=== PATIENT | female | born 1985 | race African-American/Black ===

== ENCOUNTER 2019-04-25 08:17 | Emergency (ER) | payer SELFPAY ==
[2019-04-25] MEDS ORDERED: Ondansetron 4 MG/2 ML SDV IVPUSH ONE ×2 (08:43→13:54)
[2019-04-25] MEDS ORDERED: Sodium Chloride 0.9% 10 ML Syringe FLUSH PRN ×2 (08:43→11:19)
[2019-04-25] MEDS ORDERED: Sodium Chloride 0.9% 1,000 ML IV STA (08:43)
[2019-04-25] MEDS ORDERED: HYDROmorphone 1 MG/ML Syringe IVPUSH ONE (08:45)
--- NOTE | 2019-04-25 08:51 | EDM.PDOC ---
ED HPI GENERAL MEDICAL PROBLEM - General Chief Complaint: Abdominal Pain Stated Complaint: ABDOMINAL PAIN, POSS CYST Time Seen by Provider: 04/25/19 08:26 Source of Information: Reports: Patient History Limitations: Reports: No Limitations - History of Present Illness INITIAL COMMENTS - FREE TEXT/NARRATIVE: The patient presents with abdominal pain, pelvic pain, nausea, vomiting and diarrhea. This has been going on for a few days. She has a history of cysts. She had surgery a few years ago to drain some of them. She has no dysuria or hematuria. She says the pain is radiating to her buttocks. She has no fever, chills, cough, chest pain, or shortness of breath. She has still has her gallbladder and appendix. Onset: Gradual Duration: Day(s): (3) Location: Reports: Abdomen, Back, Pelvis Quality: Reports: Sharp Severity: Moderate Improves with: Reports: None Worsens with: Reports: None Associated Symptoms: Reports: Nausea/Vomiting. Denies: Chest Pain, Cough, Fever /Chills, Headaches, Shortness of Breath Abdomen Pain Score (Numeric/FACES): 10 - Related Data Allergies Allergy/AdvReac Type Severity Reaction Status Date / Time No Known Allergies Allergy Verified 04/25/19 08:32 Home Meds: Home Meds . 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 - Past Surgical History Female Surgical History: Reports: Section Social & Family History - Tobacco Use Smoking Status *Q: Never Smoker - Caffeine Use Caffeine Use: Reports: None - Recreational Drug Use Recreational Drug Use: No ED ROS GENERAL - Review of Systems Review Of Systems: See Below Constitutional: Reports: No Symptoms HEENT: Reports: No Symptoms Respiratory: Reports: No Symptoms Cardiovascular: Reports: No Symptoms Endocrine: Reports: No Symptoms GI/Abdominal: Reports: Abdominal Pain, Diarrhea, Nausea, Vomiting : Reports: Other (Pelvic pain) Musculoskeletal: Reports: No Symptoms Skin: Reports: No Symptoms ED EXAM, GI/ABD - Physical Exam Exam: See Below Exam Limited By: No Limitations General Appearance: Alert, No Apparent Distress Ears: Normal External Exam Nose: Normal Inspection Head: Atraumatic, Normocephalic Neck: Normal Inspection Respiratory/Chest: No Respiratory Distress, Lungs Clear, Normal Breath Sounds Cardiovascular: Regular Rate, Rhythm, No Edema, No Murmur GI/Abdominal Exam: Soft, No Organomegaly, No Mass, Tender (Moderate generalized pain upon palpation) Course - Vital Signs Last Recorded V/S: Last Vital Signs Temp 100.8 F H 04/25/19 15:36 Pulse 144 H 04/25/19 15:21 Resp 16 04/25/19 15:36 BP 130/93 H 04/25/19 15:36 Pulse Ox 96 04/25/19 15:36 - Orders/Labs/Meds Orders: Active Orders 24 hr Category Date Time Status EKG Documentation Completion [RC] ASDIRECTED Care 04/25/19 15:00 Active Peripheral IV Care [RC] . DIRECTED Care 04/25/19 08:44 Active CULTURE BLOOD [BC] Stat Lab 04/25/19 11:40 Received CULTURE BLOOD [BC] Stat Lab 04/25/19 11:50 Received CULTURE URINE [RM] Stat Lab 04/25/19 10:00 Received GC/CHLAMYDIA BY PCR [MOLEC] Stat Lab 04/25/19 15:48 Received PATIENT RETYPE [BBK] Routine Lab 04/25/19 09:00 Results RED BLOOD CELLS LP [BBK] Stat Lab 04/25/19 09:00 Results Piperacillin/Tazobactam [Piperacil-Tazobact] 4.5 gm Med 04/25/19 16:30 Active Sodium Chloride 0.9% [Normal Saline] 100 ml IV Q8H Sodium Chloride 0.9% [Saline Flush] Med 04/25/19 08:43 Active 10 ml FLUSH ASDIRECTED PRN Sodium Chloride 0.9% [Saline Flush] Med 04/25/19 11:19 Active 10 ml FLUSH ONETIME PRN Blood Culture x2 Reflex Set [OM.PC] Stat Oth 04/25/19 11:15 Ordered ED Antiemetic Medication Reflex [OM.PC] Stat Oth 04/25/19 08:44 Ordered Peripheral IV Insertion Adult [OM.PC] Stat Oth 04/25/19 08:43 Ordered Transfuse PRBC [Transfuse Red Blood Cells] [COMM] Stat Oth 04/25/19 14:06 Ordered EKG 12 Lead [EK] Stat Ther 04/25/19 15:00 Ordered Medication Orders Piperacillin Sod/Tazobactam (Sod 4.5 gm/ Sodium Chloride) 100 mls @ 25 mls/hr IV Q8H MYRON Sodium Chloride (Saline Flush) 10 ml FLUSH ASDIRECTED PRN PRN Reason: Keep Vein Open Last Admin: 04/25/19 09:04 Dose: 10 ml Sodium Chloride (Saline Flush) 10 ml FLUSH ONETIME PRN PRN Reason: IV FLUSH Last Admin: 04/25/19 12:22 Dose: 10 ml Labs: Laboratory Tests 04/25/19 04/25/19 04/25/19 Range/Units 09:00 09:00 09:00 WBC 20.82 H (3.98-10.04) K/mm3 RBC 3.35 L (3.98-5.22) M/mm3 Hgb 7.3 L* (11.2-15.7) gm/L Hct 25.4 L (34.1-44.9) % MCV 75.8 L (79.4-94.8) fl MCH 21.8 L (25.6-32.2) pg MCHC 28.7 L (32.2-35.5) g/dl RDW Std Deviation 50.9 H (36.4-46.3) fL Plt Count 590 H (182-369) K/mm3 MPV 9.4 (9.4-12.3) fl Neut % (Auto) 88.1 H (34.0-71.1) % Lymph % (Auto) 5.8 L (19.3-51.7) % [place] % (Auto) 5.6 (4.7-12.5) % Eos % (Auto) 0.1 L (0.7-5.8) Baso % (Auto) 0.0 L (0.1-1.2) % Neut # (Auto) 18.33 H (1.56-6.13) K/mm3 Lymph # (Auto) 1.21 (1.18-3.74) K/mm3 [place] # (Auto) 1.16 H (0.24-0.36) K/mm3 Eos # (Auto) 0.02 L (0.04-0.36) K/mm3 Baso # (Auto) 0.01 (0.01-0.08) K/mm3 Manual Slide Review Abnormal smear Sodium 139 (136-145) mEq/L Potassium 3.1 L (3.5-5.1) mEq/L Chloride 104 (98-107) mEq/L Carbon Dioxide 25 (21-32) mEq/L Anion Gap 13.1 (5-15) BUN 5 L (7-18) mg/dL Creatinine 1.2 H (0.55-1.02) mg/dL Est Cr Clr Drug Dosing 57.58 mL/min Estimated GFR (MDRD) > 60 (>60) mL/min BUN/Creatinine Ratio 4.2 L (14-18) Glucose 153 H (74-106) mg/dL Lactic Acid (0.4-2.0) mmol/L Calcium 8.8 (8.5-10.1) mg/dL Total Bilirubin 1.0 (0.2-1.0) mg/dL AST 16 (15-37) U/L ALT 16 (14-59) U/L Alkaline Phosphatase 68 (46-116) U/L Total Protein 8.8 H (6.4-8.2) g/dl Albumin 2.7 L (3.4-5.0) g/dl Globulin 6.1 gm/dL Albumin/Globulin Ratio 0.4 L (1-2) Lipase 36 L (73-393) U/L HCG, Qual Negative (NEGATIVE) Urine Color (Yellow) Urine Appearance (Clear) Urine pH (5.0-8.0) Ur Specific [place] (1.005-1.030) Urine Protein (Negative) Urine Glucose (UA) (Negative) Urine Ketones (Negative) Urine Occult Blood (Negative) Urine Nitrite (Negative) Urine Bilirubin (Negative) Urine Urobilinogen (0.2-1.0) Ur Leukocyte Esterase (Negative) Urine RBC (0-5) /hpf Urine WBC (0-5) /hpf Ur Epithelial Cells (0-5) /hpf Urine Bacteria (FEW) /hpf Urine Mucus (FEW) /hpf Blood Type Gel Antibody Screen Crossmatch 04/25/19 04/25/19 04/25/19 Range/Units 09:00 09:00 10:00 WBC (3.98-10.04) K/mm3 RBC (3.98-5.22) M/mm3 Hgb (11.2-15.7) gm/L Hct (34.1-44.9) % MCV (79.4-94.8) fl MCH (25.6-32.2) pg MCHC (32.2-35.5) g/dl RDW Std Deviation (36.4-46.3) fL Plt Count (182-369) K/mm3 MPV (9.4-12.3) fl Neut % (Auto) (34.0-71.1) % Lymph % (Auto) (19.3-51.7) % [place] % (Auto) (4.7-12.5) % Eos % (Auto) (0.7-5.8) Baso % (Auto) (0.1-1.2) % Neut # (Auto) (1.56-6.13) K/mm3 Lymph # (Auto) (1.18-3.74) K/mm3 [place] # (Auto) (0.24-0.36) K/mm3 Eos # (Auto) (0.04-0.36) K/mm3 Baso # (Auto) (0.01-0.08) K/mm3 Manual Slide Review Sodium (136-145) mEq/L Potassium (3.5-5.1) mEq/L Chloride (98-107) mEq/L Carbon Dioxide (21-32) mEq/L Anion Gap (5-15) BUN (7-18) mg/dL Creatinine (0.55-1.02) mg/dL Est Cr Clr Drug Dosing mL/min Estimated GFR (MDRD) (>60) mL/min BUN/Creatinine Ratio (14-18) Glucose (74-106) mg/dL Lactic Acid (0.4-2.0) mmol/L Calcium (8.5-10.1) mg/dL Total Bilirubin (0.2-1.0) mg/dL AST (15-37) U/L ALT (14-59) U/L Alkaline Phosphatase (46-116) U/L Total Protein (6.4-8.2) g/dl Albumin (3.4-5.0) g/dl Globulin gm/dL Albumin/Globulin Ratio (1-2) Lipase (73-393) U/L HCG, Qual (NEGATIVE) Urine Color Dark yellow (Yellow) Urine Appearance Clear (Clear) Urine pH 6.0 (5.0-8.0) Ur Specific [place] 1.020 (1.005-1.030) Urine Protein 1+ H (Negative) Urine Glucose (UA) Negative (Negative) Urine Ketones Trace H (Negative) Urine Occult Blood 2+ H (Negative) Urine Nitrite Negative (Negative) Urine Bilirubin 1+ H (Negative) Urine Urobilinogen >=8.0 H (0.2-1.0) Ur Leukocyte Esterase 3+ H (Negative) Urine RBC 0-5 (0-5) /hpf Urine WBC 40-50 H (0-5) /hpf Ur Epithelial Cells 0-5 (0-5) /hpf Urine Bacteria Moderate H (FEW) /hpf Urine Mucus Many H (FEW) /hpf Blood Type O POSITIVE Gel Antibody Screen Negative Crossmatch See Detail 04/25/19 04/25/19 Range/Units 11:40 13:52 WBC (3.98-10.04) K/mm3 RBC (3.98-5.22) M/mm3 Hgb 6.8 L* (11.2-15.7) gm/L Hct 23.3 L (34.1-44.9) % MCV (79.4-94.8) fl MCH (25.6-32.2) pg MCHC (32.2-35.5) g/dl RDW Std Deviation (36.4-46.3) fL Plt Count (182-369) K/mm3 MPV (9.4-12.3) fl Neut % (Auto) (34.0-71.1) % Lymph % (Auto) (19.3-51.7) % [place] % (Auto) (4.7-12.5) % Eos % (Auto) (0.7-5.8) Baso % (Auto) (0.1-1.2) % Neut # (Auto) (1.56-6.13) K/mm3 Lymph # (Auto) (1.18-3.74) K/mm3 [place] # (Auto) (0.24-0.36) K/mm3 Eos # (Auto) (0.04-0.36) K/mm3 Baso # (Auto) (0.01-0.08) K/mm3 Manual Slide Review Sodium (136-145) mEq/L Potassium (3.5-5.1) mEq/L Chloride (98-107) mEq/L Carbon Dioxide (21-32) mEq/L Anion Gap (5-15) BUN (7-18) mg/dL Creatinine (0.55-1.02) mg/dL Est Cr Clr Drug Dosing mL/min Estimated GFR (MDRD) (>60) mL/min BUN/Creatinine Ratio (14-18) Glucose (74-106) mg/dL Lactic Acid 1.3 (0.4-2.0) mmol/L Calcium (8.5-10.1) mg/dL Total Bilirubin (0.2-1.0) mg/dL AST (15-37) U/L ALT (14-59) U/L Alkaline Phosphatase (46-116) U/L Total Protein (6.4-8.2) g/dl Albumin (3.4-5.0) g/dl Globulin gm/dL Albumin/Globulin Ratio (1-2) Lipase (73-393) U/L HCG, Qual (NEGATIVE) Urine Color (Yellow) Urine Appearance (Clear) Urine pH (5.0-8.0) Ur Specific [place] (1.005-1.030) Urine Protein (Negative) Urine Glucose (UA) (Negative) Urine Ketones (Negative) Urine Occult Blood (Negative) Urine Nitrite (Negative) Urine Bilirubin (Negative) Urine Urobilinogen (0.2-1.0) Ur Leukocyte Esterase (Negative) Urine RBC (0-5) /hpf Urine WBC (0-5) /hpf Ur Epithelial Cells (0-5) /hpf Urine Bacteria (FEW) /hpf Urine Mucus (FEW) /hpf Blood Type Gel Antibody Screen Crossmatch Meds: Medications Generic Name Dose Route Start Last Admin Trade Name Freq PRN Reason Stop Dose Admin Piperacillin Sod/Tazobactam 100 mls @ 25 mls/hr 04/25/19 16:30 Sod 4.5 gm/ Sodium Chloride IV Q8H MYRON Sodium Chloride 10 ml 04/25/19 08:43 04/25/19 09:04 Saline Flush FLUSH 10 ml ASDIRECTED PRN Administration Keep Vein Open Sodium Chloride 10 ml 04/25/19 11:19 04/25/19 12:22 Saline Flush FLUSH 10 ml ONETIME PRN Administration IV FLUSH Discontinued Medications Generic Name Dose Route Start Last Admin Trade Name Freq PRN Reason Stop Dose Admin Acetaminophen 975 mg 04/25/19 15:24 04/25/19 15:34 Tylenol PO 04/25/19 15:25 975 mg NOW ONE Administration Diatrizoate Meglum/Diatrizoate Sod 120 ml 04/25/19 11:19 04/25/19 12:22 Gastrografin 37% PO 04/25/19 11:20 90 ml ONETIME ONE Administration Hydromorphone HCl 1 mg 04/25/19 08:45 04/25/19 09:03 Dilaudid IVPUSH 04/25/19 08:46 1 mg ONETIME ONE Administration Hydromorphone HCl 0.5 mg 04/25/19 11:17 04/25/19 11:23 Dilaudid IVPUSH 04/25/19 11:18 0.5 mg ONETIME ONE Administration Hydromorphone HCl 0.5 mg 04/25/19 13:29 04/25/19 13:57 Dilaudid IVPUSH 04/25/19 13:30 0.5 mg ONETIME ONE Administration Sodium Chloride 1,000 mls @ 1,000 mls/hr 04/25/19 08:43 04/25/19 09:02 Normal Saline IV 04/25/19 09:42 1,000 mls/hr .BOLUS STA Administration Ceftriaxone Sodium 1 gm/ 100 mls @ 200 mls/hr 04/25/19 10:48 04/25/19 11:12 Sodium Chloride IV 04/25/19 11:17 200 mls/hr ONETIME ONE Administration Sodium Chloride 1,000 mls @ 999 mls/hr 04/25/19 12:40 04/25/19 12:48 Normal Saline IV 04/25/19 13:40 999 mls/hr ONETIME ONE Administration Sodium Chloride Confirm 04/25/19 15:09 04/25/19 15:28 Normal Saline Administered 04/25/19 15:10 Not Given Dose 1,000 mls @ as directed .ROUTE .STK-MED ONE Iopamidol 100 ml 04/25/19 11:19 04/25/19 12:22 Isovue-300 (61%) IVPUSH 04/25/19 11:20 100 ml ONETIME ONE Administration Ondansetron HCl 4 mg 04/25/19 08:43 04/25/19 09:02 Zofran IVPUSH 04/25/19 08:44 4 mg ONETIME ONE Administration Ondansetron HCl 4 mg 04/25/19 13:54 04/25/19 13:57 Zofran IVPUSH 04/25/19 13:55 4 mg ONETIME ONE Administration - Re-Assessments/Exams Free Text/Narrative Re-Assessment/Exam: 04/25/19 09:02 I ordered an IV NS 1L bolus, zofran 4mg IV, dilaudid 1mg IV, labs, UA and a transvaginal US. 04/25/19 11:16 Her WBC was elevated at 20.82. Her Hgb was low at 7.3. Her K was low at 3.1. He creatinine is elevated at 1.2. Her glucose is 153. Her UA does show a UTI. I have ordered a urine culture, blood cultures, lactic acid and rocephin IV. 04/25/19 14:08 Her US shows a 5.8cm solid appearing mass within the right ovary. This could possibly represent a hemorrhagic cyst making it look solid. Follow-up pelvic US is recommended in one month if patient's symptoms do not increase in severity to indicate earlier US. IUD is present within the endometrial cavity. Pelvic US is otherwise unremarkable. I called Dr Steiner and we talked about the findings and how a hemorrhagic cyst usually does not have an elevated WBC. I have ordered a CT of her abdomen and pelvis. The CT shows complex animality within the right side of the pelvis pushing the urterus to the left side. On CT exam this could represent ovarian mass, ovarian torsion with hemorrhage if patient has acute symptoms or even a large hemorrhagic cyst. This mass causes hydronephrosis of the right ureter and right kidney suggesting a fairly aggressive process. Slightly prominent retroperitoneal lymph nodes are noted. Uncertain if findings are due to previous inflammatory change or represent adenopathy from a more aggressive etiology of the right sided pelvic mass. Mild bibasilar atelectasis. I called Dr Steiner to update her and she will come see the patient. I rechecked her Hgb and it is down to 6.8. I have ordered 2 units of PRBCs. She had more pain so I did ordered a few doses of dilaudid and she had more nausea so I ordered more zofran. 04/25/19 16:01 Dr Steiner came to see the patient and felt she may also have pyelonephritis and possibly PID. She did get cervical cultures. She had some cervical motion tenderness. She felt the patient may be better served in [place]. 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 She talked to Dr Farley and the hospitalist Dr Bray and they accepted the patient. They wanted zosyn added. Departure - Departure Time of Disposition: 16:35 Disposition: DC/Tfer to [facility] 02 Condition: Serious Clinical Impression: Pyelonephritis, Pelvic mass, Tachycardia Anemia Qualifiers: Anemia type: other cause Other causes of anemia: other cause, not classified Qualified Code(s): D64.89 - Other specified anemias Fever Qualifiers: Fever type: unspecified Qualified Code(s): R50.9 - Fever, unspecified - Discharge Information Referrals: PCP,Not In Area [Primary Care Provider] - Forms: ED Department Discharge - My Orders Last 24 Hours: My Active Orders 04/25/19 08:43 Sodium Chloride 0.9% [Saline Flush] 10 ml FLUSH ASDIRECTED PRN Peripheral IV Insertion Adult [OM.PC] Stat 04/25/19 08:44 Peripheral IV Care [RC] . DIRECTED ED Antiemetic Medication Reflex [OM.PC] Stat 04/25/19 09:00 PATIENT RETYPE [BBK] Routine RED BLOOD CELLS LP [BBK] Stat 04/25/19 10:00 CULTURE URINE [RM] Stat 04/25/19 11:15 Blood Culture x2 Reflex Set [OM.PC] Stat 04/25/19 11:19 Sodium Chloride 0.9% [Saline Flush] 10 ml FLUSH ONETIME PRN 04/25/19 11:40 CULTURE BLOOD [BC] Stat 04/25/19 11:50 CULTURE BLOOD [BC] Stat 04/25/19 14:06 Transfuse PRBC [Transfuse Red Blood Cells] [COMM] Stat 04/25/19 15:00 EKG Documentation Completion [RC] ASDIRECTED EKG 12 Lead [EK] Stat 04/25/19 16:30 Piperacillin/Tazobactam [Piperacil-Tazobact] 4.5 gm Sodium Chloride 0.9% [ Normal Saline] 100 ml IV Q8H - Assessment/Plan Last 24 Hours: My Active Orders 04/25/19 08:43 Sodium Chloride 0.9% [Saline Flush] 10 ml FLUSH ASDIRECTED PRN Peripheral IV Insertion Adult [OM.PC] Stat 04/25/19 08:44 Peripheral IV Care [RC] . DIRECTED ED Antiemetic Medication Reflex [OM.PC] Stat 04/25/19 09:00 PATIENT RETYPE [BBK] Routine RED BLOOD CELLS LP [BBK] Stat 04/25/19 10:00 CULTURE URINE [RM] Stat 04/25/19 11:15 Blood Culture x2 Reflex Set [OM.PC] Stat 04/25/19 11:19 Sodium Chloride 0.9% [Saline Flush] 10 ml FLUSH ONETIME PRN 04/25/19 11:40 CULTURE BLOOD [BC] Stat 04/25/19 11:50 CULTURE BLOOD [BC] Stat 04/25/19 14:06 Transfuse PRBC [Transfuse Red Blood Cells] [COMM] Stat 04/25/19 15:00 EKG Documentation Completion [RC] ASDIRECTED EKG 12 Lead [EK] Stat 04/25/19 16:30 Piperacillin/Tazobactam [Piperacil-Tazobact] 4.5 gm Sodium Chloride 0.9% [ Normal Saline] 100 ml IV Q8H
[2019-04-25] MEDS ORDERED: cefTRIAXone 1 GM in Sodium Chloride 0.9% 100 ML IV ONE (10:48)
--- NOTE | 2019-04-25 11:05 | US ---
Pelvic ultrasound: Multiple real-time images were obtained transvaginally. Complicated appearing mass noted within the right ovary which is mostly solid and measures 5.6 x 5.8 x 5.7 cm. Left ovary shows follicles. Echogenic structure seen within the endometrial cavity compatible with IUD. Uterus is retroverted. No myometrial abnormality is seen. Endometrial thickness is 8 mm. Measurements: Right ovary (includes mass): 8.2 x 6.1 x 6.0 cm Left ovary: 4.5 x 2.3 x 2.9 cm Uterus: Length 8.7 cm, AP height 3.8 cm, transverse width 4.5 cm Impression: 1. 5.8 cm solid appearing mass within the right ovary. This could possibly represent a hemorrhagic cyst making it looks solid. Follow-up pelvic ultrasound is recommended in one month if patient's symptoms do not increase in severity to indicate earlier ultrasound. 2. IUD is present within the endometrial cavity. 3. Pelvic ultrasound is otherwise unremarkable. Diagnostic code #9
[2019-04-25] MEDS ORDERED: HYDROmorphone 0.5 MG/0.5 ML Syringe IVPUSH ONE ×3 (11:17→17:30)
[2019-04-25] MEDS ORDERED: Diatrizoate Meglumine/Diatrizoate Sodium 37% 120 ML Bottle PO ONE (11:19)
[2019-04-25] MEDS ORDERED: Iopamidol 612 MG/ML 100 ML Bottle IVPUSH ONE (11:19)
[2019-04-25] MEDS ORDERED: Sodium Chloride 0.9% 1,000 ML IV ONE (12:40)
--- NOTE | 2019-04-25 13:32 | CT ---
CT abdomen and pelvis Technique: Multiple axial sections were obtained from above the dome of the diaphragm inferiorly through the pubic symphysis. Intravenous and oral contrast was utilized. Delayed images were also obtained. Comparison: Prior pelvic ultrasound study performed earlier on the same day (9:29 AM). Findings: Collecting system within the right kidney is dilated with dilated right ureter. This finding presumably is due to obstruction from the right sided pelvic mass. Mixed density mass noted within the right side of the pelvis which pushes the uterus to the left side. This mass measures up to 8.6 cm on this exam. IUD is present within the endometrial cavity. IUD appears to have a somewhat low position on this exam. Atelectasis noted within both lung bases. Noncontrast appearance of the liver shows no discrete abnormality. Contrast seen within the distal esophagus compatible with reflux. Pancreas is normal. Gallbladder contains no calcified gallstones. Kidneys show no additional abnormality other than hydronephrosis noted above. Aorta shows no aneurysm. Several slightly prominent retroperitoneal lymph nodes are seen on the left side of the aorta with largest lymph node measuring 1.5 cm. No additional pelvic abnormality is appreciated. Contrast seen within the left ureter and within the bladder. Impression: 1. Complex abnormality within the right side of the pelvis pushing the uterus to the left side. On CT exam this could represent ovarian mass, ovarian torsion with hemorrhage if patient has acute symptoms or even a large hemorrhagic cyst. 2. This mass causes hydronephrosis of the right ureter and right kidney suggesting a fairly aggressive process. 3. Slightly prominent retroperitoneal lymph nodes are noted. Uncertain if findings are due to previous inflammatory change or represent adenopathy from a more aggressive etiology of the right sided pelvic mass. 4. Mild bibasilar atelectasis. Diagnostic code #3
[2019-04-25] MEDS ORDERED: Sodium Chloride 0.9% 1,000 ML ONE (15:09)
[2019-04-25] MEDS ORDERED: Acetaminophen 325 MG Tab PO ONE (15:24)
--- NOTE | 2019-04-25 15:53 | PCM.CONS ---
H&P History of Present Illness - General Date of Service: 04/25/19 Source of Information: Patient, Other (ER notes) History Limitations: Reports: No Limitations - History of Present Illness Initial Comments - Free Text/Narative: 33 year old here with pelvic pain, diarrhea, nausea and dark stool. CT shows solid appearing pelvic mass impinging on the ureter. History of ovarian cysts that have been "drained" laparoscopically. NO history of PID or STIs. Abdomen Pain Score (Numeric/FACES): 10 - Related Data Allergies/Adverse Reactions: Allergies Allergy/AdvReac Type Severity Reaction Status Date / Time No Known Allergies Allergy Verified 04/25/19 08:32 Home Medications: Home Meds . 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 - Past Surgical History Female Surgical History: Reports: Section Social & Family History - Tobacco Use Smoking Status *Q: Never Smoker - Caffeine Use Caffeine Use: Reports: None - Recreational Drug Use Recreational Drug Use: No H&P Review of Systems - Review of Systems: Review Of Systems: See Below General: Reports: Fever HEENT: Reports: No Symptoms Pulmonary: Reports: No Symptoms Cardiovascular: Reports: No Symptoms Gastrointestinal: Reports: Melena, Nausea, Vomiting Genitourinary: Reports: Dysuria Musculoskeletal: Reports: No Symptoms Skin: Reports: No Symptoms Psychiatric: Reports: No Symptoms Neurological: Reports: No Symptoms Hematologic/Lymphatic: Reports: No Symptoms Immunologic: Reports: No Symptoms Exam - Exam Exam: See Below - Vital Signs Vital Signs: Last Vital Signs Temp 38.2 C H 04/25/19 15:36 Pulse 144 H 04/25/19 15:21 Resp 16 04/25/19 15:36 BP 130/93 H 04/25/19 15:36 Pulse Ox 96 04/25/19 15:36 Weight: 92.986 kg - Exam General: Alert, Oriented, 4 HEENT: PERRLA, Hearing Intact, Mucosa Moist & [place], Nares Patent, Normal Nasal Septum, Posterior Pharynx Clear, Conjunctiva Clear, EOMI, EACs Clear, TMs Clear Neck: Supple, Trachea Midline, 2 Lungs: Clear to Auscultation, Normal Respiratory Effort Cardiovascular: Regular Rate, Regular Rhythm GI/Abdominal Exam: Normal Bowel Sounds, Soft, Non-Tender, No Organomegaly, No Distention, No Abnormal Bruit (Female) Exam: Cervical Discharge, Cervical Fluid, Cervix Motion Tenderness Rectal (Female) Exam: Normal Exam Back Exam: Normal Inspection, Full Range of Motion, NT Extremities: Normal Inspection, Normal Range of Motion, Non-Tender, No Pedal Edema, Normal Capillary Refill Skin: Warm, Dry, Intact Neurological: Cranial Nerves Intact, Reflexes Equal Bilateral Neuro Extensive - Mental Status: Alert, Oriented x3, Normal Mood/Affect, Normal Cognition Neuro Extensive - Motor, Sensory, Reflexes: CN II-XII Intact, Normal Gait, Normal Reflexes Psychiatric: Alert, Normal Affect, Normal Mood - Patient Data Lab Results Last 24 hrs: Laboratory Results - last 24 hr 04/25/19 04/25/19 04/25/19 Range/Units 09:00 09:00 09:00 WBC 20.82 H (3.98-10.04) K/mm3 RBC 3.35 L (3.98-5.22) M/mm3 Hgb 7.3 L* (11.2-15.7) gm/L Hct 25.4 L (34.1-44.9) % MCV 75.8 L (79.4-94.8) fl MCH 21.8 L (25.6-32.2) pg MCHC 28.7 L (32.2-35.5) g/dl RDW Std Deviation 50.9 H (36.4-46.3) fL Plt Count 590 H (182-369) K/mm3 MPV 9.4 (9.4-12.3) fl Neut % (Auto) 88.1 H (34.0-71.1) % Lymph % (Auto) 5.8 L (19.3-51.7) % [place] % (Auto) 5.6 (4.7-12.5) % Eos % (Auto) 0.1 L (0.7-5.8) Baso % (Auto) 0.0 L (0.1-1.2) % Neut # (Auto) 18.33 H (1.56-6.13) K/mm3 Lymph # (Auto) 1.21 (1.18-3.74) K/mm3 [place] # (Auto) 1.16 H (0.24-0.36) K/mm3 Eos # (Auto) 0.02 L (0.04-0.36) K/mm3 Baso # (Auto) 0.01 (0.01-0.08) K/mm3 Manual Slide Review Abnormal smear Sodium 139 (136-145) mEq/L Potassium 3.1 L (3.5-5.1) mEq/L Chloride 104 (98-107) mEq/L Carbon Dioxide 25 (21-32) mEq/L Anion Gap 13.1 (5-15) BUN 5 L (7-18) mg/dL Creatinine 1.2 H (0.55-1.02) mg/dL Est Cr Clr Drug Dosing 57.58 mL/min Estimated GFR (MDRD) > 60 (>60) mL/min BUN/Creatinine Ratio 4.2 L (14-18) Glucose 153 H (74-106) mg/dL Lactic Acid (0.4-2.0) mmol/L Calcium 8.8 (8.5-10.1) mg/dL Total Bilirubin 1.0 (0.2-1.0) mg/dL AST 16 (15-37) U/L ALT 16 (14-59) U/L Alkaline Phosphatase 68 (46-116) U/L Total Protein 8.8 H (6.4-8.2) g/dl Albumin 2.7 L (3.4-5.0) g/dl Globulin 6.1 gm/dL Albumin/Globulin Ratio 0.4 L (1-2) Lipase 36 L (73-393) U/L HCG, Qual Negative (NEGATIVE) Urine Color (Yellow) Urine Appearance (Clear) Urine pH (5.0-8.0) Ur Specific [place] (1.005-1.030) Urine Protein (Negative) Urine Glucose (UA) (Negative) Urine Ketones (Negative) Urine Occult Blood (Negative) Urine Nitrite (Negative) Urine Bilirubin (Negative) Urine Urobilinogen (0.2-1.0) Ur Leukocyte Esterase (Negative) Urine RBC (0-5) /hpf Urine WBC (0-5) /hpf Ur Epithelial Cells (0-5) /hpf Urine Bacteria (FEW) /hpf Urine Mucus (FEW) /hpf Blood Type Gel Antibody Screen Crossmatch 04/25/19 04/25/19 04/25/19 Range/Units 09:00 09:00 10:00 WBC (3.98-10.04) K/mm3 RBC (3.98-5.22) M/mm3 Hgb (11.2-15.7) gm/L Hct (34.1-44.9) % MCV (79.4-94.8) fl MCH (25.6-32.2) pg MCHC (32.2-35.5) g/dl RDW Std Deviation (36.4-46.3) fL Plt Count (182-369) K/mm3 MPV (9.4-12.3) fl Neut % (Auto) (34.0-71.1) % Lymph % (Auto) (19.3-51.7) % [place] % (Auto) (4.7-12.5) % Eos % (Auto) (0.7-5.8) Baso % (Auto) (0.1-1.2) % Neut # (Auto) (1.56-6.13) K/mm3 Lymph # (Auto) (1.18-3.74) K/mm3 [place] # (Auto) (0.24-0.36) K/mm3 Eos # (Auto) (0.04-0.36) K/mm3 Baso # (Auto) (0.01-0.08) K/mm3 Manual Slide Review Sodium (136-145) mEq/L Potassium (3.5-5.1) mEq/L Chloride (98-107) mEq/L Carbon Dioxide (21-32) mEq/L Anion Gap (5-15) BUN (7-18) mg/dL Creatinine (0.55-1.02) mg/dL Est Cr Clr Drug Dosing mL/min Estimated GFR (MDRD) (>60) mL/min BUN/Creatinine Ratio (14-18) Glucose (74-106) mg/dL Lactic Acid (0.4-2.0) mmol/L Calcium (8.5-10.1) mg/dL Total Bilirubin (0.2-1.0) mg/dL AST (15-37) U/L ALT (14-59) U/L Alkaline Phosphatase (46-116) U/L Total Protein (6.4-8.2) g/dl Albumin (3.4-5.0) g/dl Globulin gm/dL Albumin/Globulin Ratio (1-2) Lipase (73-393) U/L HCG, Qual (NEGATIVE) Urine Color Dark yellow (Yellow) Urine Appearance Clear (Clear) Urine pH 6.0 (5.0-8.0) Ur Specific [place] 1.020 (1.005-1.030) Urine Protein 1+ H (Negative) Urine Glucose (UA) Negative (Negative) Urine Ketones Trace H (Negative) Urine Occult Blood 2+ H (Negative) Urine Nitrite Negative (Negative) Urine Bilirubin 1+ H (Negative) Urine Urobilinogen >=8.0 H (0.2-1.0) Ur Leukocyte Esterase 3+ H (Negative) Urine RBC 0-5 (0-5) /hpf Urine WBC 40-50 H (0-5) /hpf Ur Epithelial Cells 0-5 (0-5) /hpf Urine Bacteria Moderate H (FEW) /hpf Urine Mucus Many H (FEW) /hpf Blood Type O POSITIVE Gel Antibody Screen Negative Crossmatch See Detail 04/25/19 04/25/19 Range/Units 11:40 13:52 WBC (3.98-10.04) K/mm3 RBC (3.98-5.22) M/mm3 Hgb 6.8 L* (11.2-15.7) gm/L Hct 23.3 L (34.1-44.9) % MCV (79.4-94.8) fl MCH (25.6-32.2) pg MCHC (32.2-35.5) g/dl RDW Std Deviation (36.4-46.3) fL Plt Count (182-369) K/mm3 MPV (9.4-12.3) fl Neut % (Auto) (34.0-71.1) % Lymph % (Auto) (19.3-51.7) % [place] % (Auto) (4.7-12.5) % Eos % (Auto) (0.7-5.8) Baso % (Auto) (0.1-1.2) % Neut # (Auto) (1.56-6.13) K/mm3 Lymph # (Auto) (1.18-3.74) K/mm3 [place] # (Auto) (0.24-0.36) K/mm3 Eos # (Auto) (0.04-0.36) K/mm3 Baso # (Auto) (0.01-0.08) K/mm3 Manual Slide Review Sodium (136-145) mEq/L Potassium (3.5-5.1) mEq/L Chloride (98-107) mEq/L Carbon Dioxide (21-32) mEq/L Anion Gap (5-15) BUN (7-18) mg/dL Creatinine (0.55-1.02) mg/dL Est Cr Clr Drug Dosing mL/min Estimated GFR (MDRD) (>60) mL/min BUN/Creatinine Ratio (14-18) Glucose (74-106) mg/dL Lactic Acid 1.3 (0.4-2.0) mmol/L Calcium (8.5-10.1) mg/dL Total Bilirubin (0.2-1.0) mg/dL AST (15-37) U/L ALT (14-59) U/L Alkaline Phosphatase (46-116) U/L Total Protein (6.4-8.2) g/dl Albumin (3.4-5.0) g/dl Globulin gm/dL Albumin/Globulin Ratio (1-2) Lipase (73-393) U/L HCG, Qual (NEGATIVE) Urine Color (Yellow) Urine Appearance (Clear) Urine pH (5.0-8.0) Ur Specific [place] (1.005-1.030) Urine Protein (Negative) Urine Glucose (UA) (Negative) Urine Ketones (Negative) Urine Occult Blood (Negative) Urine Nitrite (Negative) Urine Bilirubin (Negative) Urine Urobilinogen (0.2-1.0) Ur Leukocyte Esterase (Negative) Urine RBC (0-5) /hpf Urine WBC (0-5) /hpf Ur Epithelial Cells (0-5) /hpf Urine Bacteria (FEW) /hpf Urine Mucus (FEW) /hpf Blood Type Gel Antibody Screen Crossmatch Result Diagrams: 04/25/19 13:52 04/25/19 09:00 Consult PN Assessment/Plan Problem List Initiated/Reviewed/Updated: No My Orders Last 24 Hours: Pelvic mass with ureteral impingement and UTI/pyelonephritis. Severe anemia.
[2019-04-25] MEDS ORDERED: Piperacillin/Tazobactam 4.5 GM in Sodium Chloride 0.9% 100 ML IV SCH (16:30)
[2019-04-25 17:50] LABS: C. TRACHOMATIS BY PCR NOT DETECTED; N. GONORRHOEAE BY PCR NOT DETECTED
== END 2019-04-25 18:20 ==
LOC: JD.ED 08:17
DX: N12 Tubulo-interstitial nephritis, not specified as acute or chronic (principal); R19.00 Intra-abdominal and pelvic swelling, mass and lump, unspecified site; D64.89 Other specified anemias; R50.9 Fever, unspecified; R00.0 Tachycardia, unspecified
CPT/HCPCS: 36415; 36430; 74177; 76830; 80053; 81001; 83605; 83690; 84703; 85014; 85018; 85025; 86850; 86900; 86901; 86922; 87040; 87086; 87088; 87491; 87591; 93005; 96361; 96365; 96375; 96376; 99285; A9270; J0696; J1170; J2405; J2543; J7030; J7040; P9016; Q9963; Q9967

== ENCOUNTER 2019-05-20 17:22 | Emergency (ER) | payer SELFPAY ==
[2019-05-20] MEDS ORDERED: Erythromycin Base 0.5% Ophth Oint 1 GM Tube EYERT ONE (18:16)
[2019-05-20] MEDS ORDERED: Ciprofloxacin 0.3% Ophth Soln 5 ML Bottle EYEBOTH ONE (18:22)
--- NOTE | 2019-05-20 18:24 | EDM.PDOC ---
ED HPI GENERAL MEDICAL PROBLEM - General Chief Complaint: ENT Problem Stated Complaint: poss pink eye Time Seen by Provider: 05/20/19 18:00 Source of Information: Reports: Patient History Limitations: Reports: No Limitations - History of Present Illness INITIAL COMMENTS - FREE TEXT/NARRATIVE: Patient is a 33-year-old female who presents the ED complaining of pain, redness , excessive tearing to the right eye. This started over the weekend. No changes noted. Questionable matting of the eye in the morning. Similar symptoms as such in the past diagnosed with acute arterial conjunctivitis and was ministered eyedrops with resolution. She does wear contacts but has not been sleeping in them. She denies any vision changes although she does have some photosensitivity to light. Denies any headache, nausea vomiting, history of acute narrow angle go, recent history of form body to right eye, or any additional complaints. 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 ED EXAM GENERAL W FULL EYE - Physical Exam Exam: See Below Exam Limited By: No Limitations General Appearance: Alert, WD/WN, Mild Distress Eye Exam: Right Eye: Normal Inspection (Injected conjunctiva with clear drainage.), Bilateral Eye: EOMI, Nystagmus (none noted), PERRL, Vision Changes ( none noted) IOP (R) in mmH IOP (L) in mmH IOP Measure with (Equipment): [employer]open Eyelids: Bilateral: Normal Appearance Conjunctiva & Sclera: Right: Discharge (clear), Injected Extraocular Movements: Bilateral: Intact Pupillary Size: Bilateral: 3 mm Pupillary Reaction: Bilateral: Brisk Ears: Hearing Grossly Normal Nose: Normal Inspection Throat/Mouth: Normal Voice, No Airway Compromise Head: Atraumatic, Normocephalic Neck: Normal Inspection, Supple, Non-Tender, Full Range of Motion Respiratory/Chest: No Respiratory Distress, Lungs Clear, Normal Breath Sounds, No Accessory Muscle Use Cardiovascular: Normal Peripheral Pulses, Regular Rate, Rhythm, No Murmur Extremities: Normal Inspection Neurological: Alert, Oriented, CN II-XII Intact, Normal Cognition, Normal Gait Psychiatric: Normal Affect, Normal Mood Skin Exam: Warm, Dry, Intact, Normal Color Course - Vital Signs Last Recorded V/S: Last Vital Signs Temp 98.1 F 05/20/19 17:36 Pulse 64 05/20/19 17:36 Resp 18 05/20/19 17:36 BP 146/97 H 05/20/19 17:36 Pulse Ox 100 05/20/19 17:36 - Orders/Labs/Meds Orders: Active Orders 24 hr Category Date Time Status Communication Order [RC] ASDIRECTED Care 05/20/19 18:17 Active Meds: Medications Discontinued Medications Generic Name Dose Route Start Last Admin Trade Name Freq PRN Reason Stop Dose Admin Ciprofloxacin 1 ml 05/20/19 18:22 05/20/19 18:37 Ciloxan 0.3% Ophth Soln EYEBOTH 05/20/19 18:23 1 ml ONETIME ONE Administration Erythromycin 1 gm 05/20/19 18:16 05/20/19 18:47 Erythromycin 0.5% Ophth Oint EYERT 05/20/19 18:17 Not Given ONETIME ONE - Re-Assessments/Exams Free Text/Narrative Re-Assessment/Exam: Visual Acuity test has not been obtained. On exam patient has injected right eye with excessive watering noted. No purulent drainage noted. She has no upper respiratory symptoms concerning for viral etiology. She has similar hx as such with diagnosis of conjunctivitis. She denies recent sick exposure. She denies sleeping in her contacts or recent event with introduction of foreign body. She denies any vision changes although she is sensitive to light. Patient has no painful EOMs. No history acute narrow angle glaucoma. Proparacaine gtts to right eye. Interocular pressures 15 bilaterally. Initially ordered erythromycin ointment to treat conjunctivitis. Due to history of contacts although she has not been wearing them at night to go ahead and treat her with Cipro 2 drops every 8 hours x 7 days bilaterally. Return precautions discussed with patient. She has no further questions or concerns. Discharge instructions as documented. Departure - Departure Time of Disposition: 18:29 Disposition: Home, Self-Care 01 Condition: Good Clinical Impression: Conjunctivitis Qualifiers: Conjunctivitis type: acute Acute conjunctivitis type: bacterial Laterality: right Qualified Code(s): H10.31 - Unspecified acute conjunctivitis, right eye - Discharge Information Prescriptions: Acetaminophen/HYDROcodone [[place] 325-5 MG] 1 tab PO Q6H PRN #8 tablet PRN Reason: Pain (Severe 7-10) Instructions: Bacterial Conjunctivitis Referrals: PCP,None [Primary Care Provider] - Forms: ED Department Discharge, ED Return to Work/School Form Additional Instructions: Apply the cipro drops to both eyes, 2 drops every 8 hrs for 7 days. Followup with Optometrists of your choice in the next 2 days for reevaluation. Take ibuprofen and tylenol in alternating fashion for pain. For severe pain take norco 1 tab every [address] while taking the norco. Return to the E.D. for any new or worsening symptoms. Stop wearing your contacts until symptoms resolve. May utilize new contacts once treatment course has been completed. - My Orders Last 24 Hours: My Active Orders 05/20/19 18:17 Communication Order [RC] ASDIRECTED - Assessment/Plan Last 24 Hours: My Active Orders 05/20/19 18:17 Communication Order [RC] ASDIRECTED
== END 2019-05-20 18:42 | disposition home or self-care (01) ==
LOC: JD.ED 17:22
DX: H10.31 Unspecified acute conjunctivitis, right eye (principal); Z79.899 Other long term (current) drug therapy
CPT/HCPCS: 99282; A9270